=== PATIENT | male | born 2005 | race Caucasian/White ===

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

== ENCOUNTER 2023-11-23 15:57 | Emergency (ER) | payer OTHER ==
[~2023-11-23] VITALS: Ht 180.3 cm; Wt 81.8 kg
[~2023-11-23 15:57] MED LIST changes: +AMOX TR-K CLV1 EAC1 PO
[2023-11-23] MEDS ORDERED: ONDANSETRON 4 MG TAB ODT SL ONE (16:45)
[2023-11-23] MEDS ORDERED: LOPERAMIDE HCL 2 MG CAP PO ONE (16:45)
[2023-11-23] MEDS ORDERED: PREDNISONE20 MG PO (17:03)
[2023-11-23] MEDS ORDERED: ONDANSETRON ODT8 MG PO (17:20)
[2023-11-23 17:42] VITALS: BP 99/68
== END 2023-11-23 17:42 | disposition home or self-care (01) ==
LOC: ED 15:57
DX: B34.9 Viral infection, unspecified (principal); S60.221A Contusion of right hand, initial encounter; W22.8XXA Striking against or struck by other objects, initial encounter; Z20.822 Contact with and (suspected) exposure to COVID-19; Z91.030 Bee allergy status
CPT/HCPCS: 73130; 99283-25; A9270

== ENCOUNTER 2024-07-21 06:23 | Emergency (ER) | payer OTHER ==
[~2024-07-21] VITALS: Ht 188 cm; Wt 75.0 kg
[~2024-07-21 06:23] MED LIST changes: +FLUTICASONE PRO16 GM NAS; +NICOTINE1 EAC2 TD; +ONDANSETRON ODT8 MG PO; +PREDNISONE20 MG PO
[2024-07-21 06:44] LABS: BASOPHILS 0.4 % (0-2); EOSINOPHILS 1.2 % (0-6); HEMATOCRIT 47.3 % (35.0-50.0); HEMOGLOBIN 16.8 g/dL (12.0-18.0); LYMPHOCYTES 8.3 % (24-44); MCH 31.2 (27-36); MCHC 35.6 g/dl (30-36); MCV 87.5 fl (81-99); MONOCYTES 8.4 % (0-12); NEUTROPHILS 81.7 % (39-80); PLATELET COUNT 322 K/uL (140-440); RDW 12.7 (10.5-15.0)
[2024-07-21 06:59] LABS: BILIRUBIN, URINE NEGATIVE (negative); BLOOD/HGB, URINE NEGATIVE (Negative); KETONE, URINE SMALL (Negative); LEUK ESTERASE, URINE NEGATIVE (negative); NITRITE, URINE NEGATIVE (negative)
[2024-07-21 07:01] LABS: BACTERIA, URINE NONE SEEN /hpf (negative); CASTS, URINE HYALINE 2+ \\lpf; COLLECTION TYPE, URINE CLEAN CATCH; CRYSTALS, URINE NONE SEEN (0-1+); EPITHELIAL CELLS, URINE 0 /lpf (0-1+); REFLEX CULTURE, URINE No (No); WHITE BLOOD CELLS, URINE 0-1 /HPF (0-5)
[2024-07-21 07:08] LABS: ACETAMINOPHEN 0 ug/mL (10-30); ALBUMIN 4.3 g/dL (3.4-5.0); ALCOHOL, MEDICAL <3 ng/dL (<3); ALKALINE PHOSPHATASE 93 U/L (46-116); ALT (SGPT) 23 U/L (14-59); ANION GAP 13.6 (7-21); AST (SGOT) 26 U/L (15-37); BILIRUBIN, TOTAL 2.2 ng/dL (0.2-1.0); BUN/CREATININE RATIO 21.56 (6.0-28.6); CALCIUM 9.6 mg/dL (8.5-10.1); CARBON DIOXIDE 28 mmol/L (21-32); CHLORIDE 101 mmol/L (98-107); CREATININE, SERUM 1.02 mg/dL (0.70-1.30); GLOMERULAR FILTRATION RATE,EST 108 mL/min (>60); POTASSIUM 3.6 mmol/L (3.5-5.1); PROTEIN, TOTAL 8.2 g/dL (6.4-8.2); TSH, 3RD GENERATION 1.843 uIU/mL (0.516-4.130); UREA NITROGEN 22 mg/dL (7-18)
[2024-07-21 07:09] LABS: SALICYLATE <0.2 mg/dL (2.8-20.0)
[2024-07-21 07:13] LABS: AMPHETAMINES, URINE POSITIVE (NEGATIVE); BARBITURATES, URINE NEGATIVE (NEGATIVE); BENZODIAZEPINE, URINE NEGATIVE (NEGATIVE); BUPRENORPHINE, URINE NEGATIVE (NEGATIVE); CANNABINOID, URINE POSITIVE (NEGATIVE); COCAINE, URINE NEGATIVE (NEGATIVE); ECSTASY, URINE POSITIVE (NEGATIVE); FENTANYL, URINE NEGATIVE (NEGATIVE); METHADONE, URINE NEGATIVE (NEGATIVE); OPIATES, URINE NEGATIVE (NEGATIVE); OXYCODONE, URINE NEGATIVE (NEGATIVE); PHENCYCLIDINE, URINE NEGATIVE (NEGATIVE)
[2024-07-21] MEDS ORDERED: NICOTINE 21 MG/24 HR 1 EA TDSY TD ONE (07:15)
[2024-07-21 10:16] VITALS: BP 127/86
== END 2024-07-21 10:16 | disposition home or self-care (01) ==
LOC: ED 06:23
PROVIDERS: Internal Medicine
DX: R45.851 Suicidal ideations (principal); T59.811A Toxic effect of smoke, accidental (unintentional), initial encounter; F19.10 Other psychoactive substance abuse, uncomplicated; F43.10 Post-traumatic stress disorder, unspecified; F43.20 Adjustment disorder, unspecified; Z91.038 Other insect allergy status; X08.8XXA Exposure to other specified smoke, fire and flames, initial encounter
CPT/HCPCS: 36415; 71045; 80053; 80307; 81001; 84443; 85025; 99285-25; G0480